=== PATIENT | female | born 1945 | race Hispanic/Latino ===

== ENCOUNTER 2022-06-25 06:50 | Day surgery (SDC) | payer OTHER ==
[2022-06-20 11:20] LABS: BASOPHILS % (AUTO) 0.6 % (0.0-5.0); EOSINOPHILS % (AUTO) 1.8 % (0.0-8.0); MEAN CORPUSCULAR HEMOGLOBIN 32.4 pg (27.0-33.0); MEAN CORPUSCULAR HGB CONC 32.2 g/dL (32.0-36.0); MEAN CORPUSCULAR VOLUME 100.8 fL (79-99); NEUTROPHILS % (AUTO) 49.2 % (40.0-77.0); PLATELET COUNT (AUTO) 120 K/uL (130-400); RED BLOOD CELL COUNT(AUTO) 3.67 MIL/uL (4.00-5.50); RED CELL DISTRIBUTION WIDTH 14.3 % (11.0-15.5); WHITE BLOOD COUNT (AUTO) 5.4 K/uL (4.8-10.8)
[2022-06-20 11:34] LABS: ALBUMIN 3.5 g/dL (3.5-5.0); CREATININE 4.3 mg/dL (0.5-1.5); POTASSIUM 4.6 mmol/L (3.5-5.1); TOTAL PROTEIN, SERUM 7.3 g/dL (6.0-8.3)
[2022-06-20 11:47] LABS: INR 0.98 (0.85-1.15); PROTHROMBIN TIME 10.7 SEC (9.6-11.6)
[2022-06-20 11:48] LABS: PARTIAL THROMBOPLASTIN TIME 31.3 SEC (26.3-35.5)
[2022-06-20 12:32] VITALS: BP 154/65
[2022-06-25] VITALS (19 sets, daily range): BP systolic 141–171; BP diastolic 52–79
[~2022-06-25] VITALS: Ht 152.4 cm; Wt 87.0 kg
[~2022-06-25 06:50] MED LIST: ACET-2247 PO; AEC81 PO; ALBU2.5V2 IH; AURYXIA PO; CLOP75TA32 PO; FOLI0.8T22 PO; HYDR100T27 PO; INSU3INS5 SQ; ISOS20TA9 PO; LEVO75TA10 PO; METO100T14 PO; PAPAVERINE HCL 30 MG/ML 2ML VIAL ONE; ROSU40TA21 PO; SEVE800T7 PO; THROMBIN-JMI 5000 UNIT/VIAL TP ONE
[2022-06-25] MEDS ORDERED: 0.9% NACL 500ML IV.SOLN 500 ML IV ONE (06:55)
[2022-06-25] MEDS ORDERED: CEFAZOLIN SODIUM 2 GM VIAL ONE (06:55)
[2022-06-25 07:31] LABS: CREATININE 4.6 mg/dL (0.5-1.5); POTASSIUM 4.3 mmol/L (3.5-5.1)
[2022-06-25] MEDS ORDERED: DEXAMETHASONE SOD PHOSPHATE 10MG/ML 1ML VIAL ONE (08:19)
[2022-06-25] MEDS ORDERED: LIDOCAINE PF 100MG/5ML (2%) SYRINGE 5ML ONE (08:19)
[2022-06-25] MEDS ORDERED: SUCCINYLCHOLINE CHLORIDE 20 MG/ML 10 ML VIAL ONE (08:19)
[2022-06-25] MEDS ORDERED: ONDANSETRON 4MG INJ ONE ×2 (08:19→09:53)
[2022-06-25] MEDS ORDERED: MIDAZOLAM HCL 1 MG/ML 2ML VIAL ONE (08:19)
[2022-06-25] MEDS ORDERED: PROPOFOL 10 MG/ML 20ML VIAL IV ONE (08:20)
[2022-06-25] MEDS ORDERED: NEOSTIGMINE 5MG/5ML SYR IV ONE (08:20)
[2022-06-25] MEDS ORDERED: ROCURONIUM 10MG/1ML SYR 10 MG/ML ML ONE (08:20)
[2022-06-25] MEDS ORDERED: FENTANYL CITRATE PF 50 MCG/1 ML 2ML VIAL ONE ×2 (08:20→09:54)
[2022-06-25] MEDS ORDERED: GLYCOPYRROLATE 1 MG/5 ML SYRINGE ONE (08:20)
[2022-06-25] MEDS ORDERED: HEPARIN 10,000 UNIT/10ML (1,000 UNIT/ML) VIAL ONE (09:11)
[2022-06-25] MEDS ORDERED: PROTAMINE SULFATE 10 MG/ML 5 ML VIAL ONE (09:11)
[2022-06-25] MEDS ORDERED: HYDRALAZINE 20MG/ML VIAL ONE (10:04)
[2022-06-25] MEDS ORDERED: IBUPROFEN 800 MG TAB ONE (10:45)
== END 2022-06-25 11:50 | disposition home or self-care (01) ==
LOC: DAH 06:50 → EDSTATUS 14:30
PROVIDERS: ATTEND Student in an Organized Health Care Education/Training Program
DX: E11.22 Type 2 diabetes mellitus with diabetic chronic kidney disease (principal); Z20.822 Contact with and (suspected) exposure to COVID-19; I12.0 Hypertensive chronic kidney disease with stage 5 chronic kidney disease or end stage renal disease; N18.6 End stage renal disease; E03.9 Hypothyroidism, unspecified; E11.51 Type 2 diabetes mellitus with diabetic peripheral angiopathy without gangrene; I25.10 Atherosclerotic heart disease of native coronary artery without angina pectoris; Z90.710 Acquired absence of both cervix and uterus; Z90.89 Acquired absence of other organs; Z98.890 Other specified postprocedural states; Z95.5 Presence of coronary angioplasty implant and graft; Z79.890 Hormone replacement therapy; Z79.4 Long term (current) use of insulin; Z79.82 Long term (current) use of aspirin; Z79.01 Long term (current) use of anticoagulants; Z79.899 Other long term (current) drug therapy; Z99.2 Dependence on renal dialysis
CPT/HCPCS: 80053; 85025; 85610; 85730; 87426; 36415 ×2; 71045; 93005; 36821; 80048; 82948 ×2; A6260; A4663; J7040; J3010 ×2; J3490; J1100; J2710; J0330; J2001; J2720; J0360; J1644 ×2; J2250; J2704; J2405 ×2; J0690; G0168; A4649 ×2; C1713 ×2; A4215; A4223; A4222; A4221; J2440

== ENCOUNTER → 2023-04-24 | Outpatient (CLI) | payer OTHER ==
[~2023-04-24] MED LIST changes: -PAPAVERINE HCL 30 MG/ML 2ML VIAL ONE; -THROMBIN-JMI 5000 UNIT/VIAL TP ONE
[2023-04-24 14:33] LABS: CREATININE 6.1 mg/dL (0.5-1.5)
== END | disposition home or self-care (01) ==
LOC: RAH 13:27
PROVIDERS: ATTEND Student in an Organized Health Care Education/Training Program
DX: N18.6 End stage renal disease (principal)
CPT/HCPCS: 36415; 82565; 84520

== ENCOUNTER → 2023-04-26 | Outpatient (CLI) | payer OTHER ==
[~2023-04-26] MED LIST changes: +IOHEXOL 350 MG/ML 100ML INFUS..BTL IV ONE; +IOHEXOL-350 50ML VIAL IV ONE
== END | disposition home or self-care (01) ==
LOC: RAH 07:46
PROVIDERS: ATTEND Student in an Organized Health Care Education/Training Program
DX: Z01.818 Encounter for other preprocedural examination (principal); N18.6 End stage renal disease; I70.0 Atherosclerosis of aorta; I70.203 Unspecified atherosclerosis of native arteries of extremities, bilateral legs
CPT/HCPCS: 75635; 93971; Q9967 ×2

== ENCOUNTER 2023-06-07 06:40 | Day surgery (SDC) | payer OTHER ==
[2023-06-03 10:11] LABS: BASOPHILS # (AUTO) 0.03 K/uL (0.00-0.20); BASOPHILS % (AUTO) 0.5 % (0.0-5.0); EOSINOPHILS # (AUTO) 0.09 K/uL (0.00-0.70); EOSINOPHILS % (AUTO) 1.4 % (0.0-8.0); HEMATOCRIT 34.8 % (36-48); IMMATURE GRANULOCYTE ABSOLUTE 0.02 K/uL (0-1); LYMPHOCYTES # (AUTO) 1.3 K/uL (1.0-4.8); LYMPHOCYTES % (AUTO) 20.4 % (21.0-51.0); MEAN CORPUSCULAR HEMOGLOBIN 33.2 pg (27.0-33.0); MEAN CORPUSCULAR HGB CONC 31.3 g/dL (32.0-36.0); MEAN CORPUSCULAR VOLUME 106.1 fL (79-99); MONOCYTES # (AUTO) 0.6 K/uL (0.1-1.0); MONOCYTES % (AUTO) 9.4 % (3.0-13.0); NEUTROPHILS # (AUTO) 4.5 K/uL (1.8-7.7); PLATELET COUNT (AUTO) 128 K/uL (130-400); RED BLOOD CELL COUNT(AUTO) 3.28 MIL/uL (4.00-5.50); RED CELL DISTRIBUTION WIDTH 13.6 % (11.0-15.5); WHITE BLOOD COUNT (AUTO) 6.6 K/uL (4.8-10.8)
[2023-06-03 10:16] LABS: POTASSIUM 4.7 mmol/L (3.5-5.1)
[2023-06-03 10:19] VITALS: BP 121/44; PULSE 63; RESP 18
[2023-06-03 10:28] LABS: INR 0.94 (0.85-1.15); PROTHROMBIN TIME 10.9 SEC (9.6-11.6)
[2023-06-03 10:30] LABS: PARTIAL THROMBOPLASTIN TIME 29.5 SEC (26.3-35.5)
[~2023-06-07] VITALS: Ht 154.9 cm; Wt 89.1 kg
[2023-06-07] VITALS (17 sets, daily range): BP systolic 129–162; BP diastolic 34–64; PULSE 67–79; RESP 14–16
[~2023-06-07 06:40] MED LIST changes: -ACET-2247 PO; -AURYXIA PO; +INSU100I35 SQ; -INSU3INS5 SQ; -IOHEXOL 350 MG/ML 100ML INFUS..BTL IV ONE; -IOHEXOL-350 50ML VIAL IV ONE; +LISI20TA24 PO; +MAGN200T4 PO; -METO100T14 PO; +SEVE800T27 PO; -SEVE800T7 PO
[2023-06-07] MEDS ORDERED: 0.9% NACL 500ML IV.SOLN 500 ML IV ONE ×2 (07:01→07:19)
[2023-06-07] MEDS ORDERED: CEFAZOLIN SODIUM 2 GM VIAL ONE (07:19)
[2023-06-07] MEDS ORDERED: LIDOCAINE HCL-MPF 2% 5ML VIAL ONE (07:54)
[2023-06-07] MEDS ORDERED: ROCURONIUM BROMIDE 10MG/1ML 5ML VL ONE (08:24)
[2023-06-07] MEDS ORDERED: FENTANYL CITRATE PF 50 MCG/1 ML 2ML VIAL ONE (08:24)
[2023-06-07] MEDS ORDERED: LIDOCAINE PF 100MG/5ML (2%) SYRINGE 5ML ONE (08:24)
[2023-06-07] MEDS ORDERED: GLYCOPYRROLATE 0.2 MG/ML 5 ML VIAL ONE (08:24)
[2023-06-07] MEDS ORDERED: PROPOFOL 10 MG/ML 20ML VIAL IV ONE (08:24)
[2023-06-07 08:29] LABS: CREATININE 5.3 mg/dL (0.5-1.5); POTASSIUM 3.3 mmol/L (3.5-5.1)
[2023-06-07] MEDS ORDERED: KETAMINE 50MG/ML SYRINGE 50 MG/ML DISP.SYRIN ONE (08:38)
[2023-06-07] MEDS ORDERED: EPHEDRINE SULFATE 50 MG/ML AMPULE ONE (09:11)
[2023-06-07] MEDS: CEFAZOLIN SODIUM 2 GM VIAL IVPB ONE (09:13)
[2023-06-07] MEDS: HEPARIN 5,000 UNIT VIAL IRRIG ONE (09:40)
[2023-06-07] MEDS ORDERED: ALBU18HF7 IH (10:29)
[2023-06-07] MEDS ORDERED: NEOSTIGMINE METHYLSULFATE 1MG/ML IV ONE (10:30)
== END 2023-06-07 12:50 | disposition home or self-care (01) ==
LOC: DAH 06:40
PROVIDERS: ATTEND Student in an Organized Health Care Education/Training Program
DX: E11.22 Type 2 diabetes mellitus with diabetic chronic kidney disease (principal); I12.0 Hypertensive chronic kidney disease with stage 5 chronic kidney disease or end stage renal disease; N18.6 End stage renal disease; I44.7 Left bundle-branch block, unspecified; I25.10 Atherosclerotic heart disease of native coronary artery without angina pectoris; E03.9 Hypothyroidism, unspecified; Z79.899 Other long term (current) drug therapy; Z98.890 Other specified postprocedural states; Z79.82 Long term (current) use of aspirin; Z79.890 Hormone replacement therapy; Z90.710 Acquired absence of both cervix and uterus; Z90.89 Acquired absence of other organs; Z95.5 Presence of coronary angioplasty implant and graft; Z86.73 Personal history of transient ischemic attack (TIA), and cerebral infarction without residual deficits; Z99.2 Dependence on renal dialysis
CPT/HCPCS: 80048 ×2; 85025; 85610; 85730; 86850 ×2; 86900 ×2; 86901 ×2; 36415 ×2; 93005; 36821; 37607; 82948 ×2; A6260; A4649 ×4; J7040 ×2; J3010; J3490 ×5; J2001; J2704; J2710; J1644 ×2; J0690 ×2; C1713 ×2; A4930; A4215; A4223; A4213; A4222; A4221; A4663; A4600; G0168

== ENCOUNTER 2023-12-23 06:43 | Observation (INO) | payer OTHER ==
[2023-12-19 10:54] LABS: BASOPHILS # (AUTO) 0.02 K/uL (0.00-0.20); BASOPHILS % (AUTO) 0.5 % (0.0-5.0); EOSINOPHILS % (AUTO) 2.6 % (0.0-8.0); HEMATOCRIT 33.2 % (36-48); IMMATURE GRANULOCYTE ABSOLUTE 0.01 K/uL (0-1); LYMPHOCYTES # (AUTO) 1.2 K/uL (1.0-4.8); MEAN CORPUSCULAR HEMOGLOBIN 34.4 pg (27.0-33.0); MEAN CORPUSCULAR HGB CONC 32.2 g/dL (32.0-36.0); MEAN CORPUSCULAR VOLUME 106.8 fL (79-99); MONOCYTES # (AUTO) 0.6 K/uL (0.1-1.0); MONOCYTES % (AUTO) 14.8 % (3.0-13.0); NEUTROPHILS # (AUTO) 1.9 K/uL (1.8-7.7); NEUTROPHILS % (AUTO) 49.8 % (40.0-77.0); PLATELET COUNT (AUTO) 130 K/uL (130-400); RED BLOOD CELL COUNT(AUTO) 3.11 MIL/uL (4.00-5.50); RED CELL DISTRIBUTION WIDTH 14.1 % (11.0-15.5); WHITE BLOOD COUNT (AUTO) 3.8 K/uL (4.8-10.8)
[2023-12-19 10:58] VITALS: BP 139/50; PULSE 65; RESP 18; TEMP 98
[2023-12-19 11:05] LABS: INR 1.05 (0.85-1.15); PROTHROMBIN TIME 11.3 SEC (9.6-11.6)
[2023-12-19 11:06] LABS: PARTIAL THROMBOPLASTIN TIME 29.2 SEC (26.3-35.5)
[2023-12-19 12:15] LABS: CREATININE 6.1 mg/dL (0.5-1.0)
[~2023-12-23] VITALS: Ht 152.4 cm; Wt 85.3 kg
[2023-12-23] VITALS (40 sets, daily range): BP systolic 100–149; BP diastolic 37–60; PULSE 47–62; RESP 12–20; TEMP 97.1–98.5; O2SAT 96–98
[~2023-12-23 06:43] MED LIST changes: -ALBU2.5V2 IH; +ALBUTEROL NEB; +HYDR100T15 PO; -HYDR100T27 PO; +INSU100C6 SQ; -INSU100I35 SQ; -LISI20TA24 PO; +LOSA50TA64 PO; +METO-409 PO; -ROSU40TA21 PO; +ROSU40TA88 PO
[2023-12-23] MEDS ORDERED: rocuRONium bROMide 10MG/1ML 5ML VL ONE (07:28)
[2023-12-23] MEDS ORDERED: proPOFol 10 MG/ML 20ML VIAL IV ONE (07:28)
[2023-12-23] MEDS ORDERED: ondanSETRON 4MG INJ ONE (07:28)
[2023-12-23] MEDS ORDERED: MIDAZOLAM HCL 1 MG/ML 2ML VIAL ONE (07:28)
[2023-12-23] MEDS ORDERED: phenylEPHRINE HCL 10 MG/ML 1ML VIAL IV ONE (07:28)
[2023-12-23] MEDS ORDERED: dexaMETHasone SOD PHOSPHATE 4 MG/ML 1ML VIAL ONE (07:29)
[2023-12-23] MEDS ORDERED: FENTanyl CITRate PF 50 MCG/1 ML 2ML VIAL ONE (07:29)
[2023-12-23] MEDS: DEXTROSE 50%-WATER 50 ML DISP.SYRIN IV ONE ×3 (07:44→14:45)
[2023-12-23] MEDS: 0.9% NACL 500ML IV.SOLN 500 ML IV ONE (07:44)
[2023-12-23] MEDS: ceFAZolin SODIUM 2 GM VIAL ONE (07:45)
[2023-12-23] MEDS ORDERED: BUPIvacaine/PF 0.25% 30ML VIAL IJ ONE (07:51)
[2023-12-23] MEDS ORDERED: HEParin-NS 1,000 UNIT/500 ML 500 ML IV ONE (07:51)
[2023-12-23] MEDS ORDERED: LIDOCAINE HCL 1% 20 ML VIAL ONE (07:53)
[2023-12-23 08:12] LABS: CREATININE 8.4 mg/dL (0.5-1.0)
[2023-12-23] MEDS: CALCIUM GLUC 1GM 1 GM in 0.9%NACL 100ML 100 ML IV ONE (08:41)
[2023-12-23] MEDS: INSULIN humuLIN R 100 UNIT/ML 3ML ONE (08:48)
[2023-12-23 09:56] LABS: POTASSIUM 5.9 mmol/L (3.5-5.1)
[2023-12-23 09:58] LABS: CREATININE 8.3 mg/dL (0.5-1.0)
[2023-12-23] MEDS: ceFAZolin SODIUM 2 GM VIAL IVPB ONE (12:30)
[2023-12-23] MEDS ORDERED: NEOSTIGMINE METHYLSULFATE 1MG/ML IV ONE (13:08)
[2023-12-23] MEDS ORDERED: GLYCOPYRROLATE 0.2 MG/ML 5 ML VIAL ONE (13:08)
[2023-12-23 14:15] LABS: CREATININE 8.6 mg/dL (0.5-1.0); POTASSIUM 6.2 mmol/L (3.5-5.1)
[2023-12-23] MEDS ORDERED: APPL NEB PRN (15:30)
[2023-12-23] MEDS: 0.9%NACL 1000ML 1,000 ML IV SCH (15:30)
[2023-12-23] MEDS: sevELAMer HCL 800 MG TABLET PO SCH (16:55)
[2023-12-23] MEDS: INSULIN LISpro 100 UNIT/ML 3ML SQ SCH (20:00)
[2023-12-23] MEDS: LoSARTan 50 MG TABLET PO SCH (20:20)
[2023-12-23] MEDS: hydrALAZine 25MG TABLET PO SCH (20:20)
[2023-12-23] MEDS ORDERED: INSULIN ASPART 30 UNIT SQ SCH (21:00)
[2023-12-23] MEDS: atorVAStatin 40 MG TABLET PO SCH (21:00)
[2023-12-23] MEDS ORDERED: NON-FORMULARY MEDICATION 1 EACH (Hydralazine HCl 100 MG) PO SCH (21:00)
[2023-12-23] MEDS ORDERED: NON-FORMULARY MEDICATION 1 EACH (Rosuvastatin Calcium 40 MG) PO SCH (21:00)
[2023-12-24] VITALS (7 sets, daily range): BP systolic 102–143; BP diastolic 41–52; PULSE 57–105; RESP 18–19; TEMP 98.4–98.8; O2SAT 99
[2023-12-24] MEDS: ACETAMINOPHEN 650 MG PO PRN (03:32)
[2023-12-24 04:12] LABS: HEPATITIS B CORE AB TOTAL Non-Reactive (Nonreactive); HEPATITIS B SURFACE ANTIBODY Positive (Reactive); HEPATITIS B SURFACE ANTIGEN Non-Reactive (Nonreactive)
[2023-12-24 05:29] LABS: CREATININE 5.9 mg/dL (0.5-1.0); POTASSIUM 5.6 mmol/L (3.5-5.1)
[2023-12-24] MEDS: levoTHYROxine 75 MCG TABLET PO SCH (05:36)
[2023-12-24] MEDS ORDERED: NA ZIRCON CYCLOSIL(LOKELMA 10GM) PO ONE (07:30)
[2023-12-24] MEDS ORDERED: INSULIN ASPART 40 UNIT SQ SCH (09:00)
[2023-12-24] MEDS ORDERED: NON-FORMULARY MEDICATION 1 EACH (Metoprolol Succinate 100 MG) PO SCH (09:00)
[2023-12-24] MEDS ORDERED: cloPIDOgrel 75MG TAB PO SCH (09:00)
[2023-12-24] MEDS: ASPIRIN 81 MG EC TAB PO SCH (09:14)
[2023-12-24] MEDS: metOPROLol sucCINATE 50 MG TAB.SR.24H PO SCH (09:14)
[2023-12-24] MEDS: NA ZIRCON CYCLOSIL(LOKELMA 10GM) PO ONE (09:15)
[2023-12-24] MEDS: INSULIN LISpro 100 UNIT/ML 3ML SQ SCH (09:21)
[2023-12-24] MEDS: VITAMIN B COMP W C PO SCH (12:18)
[2023-12-24] MEDS: Magnesium 200 MG PO SCH (12:18)
[2023-12-24] MEDS: FOLIC ACID PO SCH (12:18)
[2023-12-30] MEDS ORDERED: levoTHYROxine 75 MCG TABLET PO SCH (06:30)
== END 2023-12-24 18:00 | disposition home or self-care (01) ==
LOC: DAH 06:43 → DAHIP 06:44 → DAH 06:44 → 3DH 15:00
PROVIDERS: ADMIT Student in an Organized Health Care Education/Training Program; ATTEND Student in an Organized Health Care Education/Training Program
DX: I12.0 Hypertensive chronic kidney disease with stage 5 chronic kidney disease or end stage renal disease (principal); E11.22 Type 2 diabetes mellitus with diabetic chronic kidney disease; N18.6 End stage renal disease; E87.5 Hyperkalemia; D63.1 Anemia in chronic kidney disease; I25.10 Atherosclerotic heart disease of native coronary artery without angina pectoris; E03.9 Hypothyroidism, unspecified; Z99.2 Dependence on renal dialysis; Z79.899 Other long term (current) drug therapy; Z90.710 Acquired absence of both cervix and uterus
CPT/HCPCS: 80048 ×5; 85025; 85610; 85730; 86850 ×2; 86900 ×2; 86901 ×2; 36415 ×3; 71045; 93005; 96376; 96365; 96375; 82948 ×12; 36832; 86803; 86706; 87340; 86704; 90935; A6260; J1815 ×3; J1100; G0378 ×24; A4223 ×2; A4600; A4663; A6207; J7040; J3010; J0665 ×2; J7070 ×3; J3490 ×2; J0612; J2250; J2704; J2405; J2710; J1644 ×2; J2371; J0690 ×2; G0168; A4649 ×2; C1713 ×2; A4930; A4215; A4222; A4221; A4216; G0257

== ENCOUNTER 2025-03-01 09:58 | Emergency (ER) | payer OTHER ==
[~2025-03-01] VITALS: Ht 152.4 cm; Wt 85.4 kg
--- NOTE | 2025-03-01 10:07 | ERN ---
ED Note History of Present Illness Stated Complaint: RLE PAIN/SWELLING Chief Complaint: LOWER EXTREMITY EDEMA Time Seen by MD: 10:01 Dictation: PATIENT IS A 79-YEAR-OLD DIALYSIS PATIENT HERE WITH ERYTHEMA SWELLING TENDERNESS TO HER RIGHT LOWER LEG FROM HER KNEE DOWN FOR THREE DAYS. NO FEVER NO CHILLS NO NAUSEA VOMITING. WENT TO HEMODIALYSIS DAY AND WAS STRONGLY ADVISED TO COME TO THE EMERGENCY ROOM TO RULE OUT DVT. DISTAL NEUROVASCULAR CMS INTACT. PULSES PALPABLE Allergies: Coded Allergies: No Known Drug Allergies (Unverified Allergy, Unknown, 06/20/22) Home Meds Reported Medications Insulin Aspart (Novolog) 100 Unit/Ml Cartridge, 30 UNIT SQ HS, CARTRIDGE 12/19/23 Insulin Aspart (Novolog) 100 Unit/Ml Cartridge, 40 UNIT SQ AM, CARTRIDGE 12/19/23 [Albuterol] No Conflict Check, 1 APPL NEB AD PRN for SHORTNESS OF BREATH 12/19/23 Losartan Potassium (Losartan Potassium) 50 Mg Tablet, 50 MG PO HS, TAB 12/19/23 Metoprolol Succinate (Metoprolol Succinate) 100 Mg Tab.er.24h, 100 MG PO AM, TAB 12/19/23 Sevelamer HCl (Sevelamer HCl) 800 Mg Tablet, 1600 MG PO TIDMEALS, TAB 06/03/23 Folic Acid/Vitamin B Comp W-C (Isabel-Antonio Tablet) 0.8 Mg Tablet, 0.8 MG PO PCLUNCH, TAB 06/03/23 Magnesium (Magnesium) 200 Mg Tablet, 200 MG PO PCLUNCH, TAB 06/03/23 Clopidogrel Bisulfate (Clopidogrel) 75 Mg Tablet, 75 MG PO DAILY, TAB 06/21/22 Aspirin (ASPIRIN 81 MG ECTAB) 81 Mg Ectab, 81 MG PO DAILY, TAB.EC 06/21/22 Rosuvastatin Calcium (Rosuvastatin Calcium) 40 Mg Tablet, 40 MG PO HS, TAB 06/21/22 Levothyroxine Sodium (Levothyroxine Sodium) 75 Mcg Tablet, 37.5 MCG PO QWEEK, TAB on sundays06/21/22 Levothyroxine Sodium (Levothyroxine Sodium) 75 Mcg Tablet, 75 MCG PO DAILY, TAB SATURDAY-Saturday06/21/22 Isosorbide Dinitrate (Isosorbide Dinitrate) 20 Mg Tablet, 20 MG PO BID, TAB 06/21/22 Hydralazine HCl (Hydralazine HCl) 100 Mg Tablet, 100 MG PO TID, TAB 06/21/22 Past Medical History Past Medical History: Diabetes-Type II, High Cholesterol, Heart Disease, Hypertension, Hyperthyroid, Renal Disese Surgical History: Appendectomy, Hysterectomy, Tonsillectomy, LAVA, RAVA History: Not Applicable RN Note Reviewed/Agreed w/PFSH: Yes Review of System Dictation CONSTITUTIONAL: NEGATIVE EXCEPT FOR HPI HEAD/FACE: NEGATIVE EXCEPT FOR HPI EENT: NEGATIVE EXCEPT FOR HPI RESPIRATORY: NEGATIVE EXCEPT FOR HPI GASTROINTESTINAL/ABDOMINAL: NEGATIVE EXCEPT FOR HPI GENITOURINARY: NEGATIVE EXCEPT FOR HPI MUSCULOSKELETAL: NEGATIVE EXCEPT FOR HPI RIGHT LOWER LEG ERYTHEMA SWELLING TEND ERNESS THREE DAYS INTEGUMENTARY: NEGATIVE EXCEPT FOR HPI NEUROLOGICAL/PSYCH: NEGATIVE EXCEPT FOR HPI HEMATOLOGIC/LYMPHATIC: NEGATIVE EXCEPT FOR HPI ALL SYSTEMS NEGATIVE, EXCEPT NOTED ABOVE. 13 POINT REVIEW OF SYSTEMS ASSESSED AND ALL NEGATIVE EXCEPT FOR ABOVE. Initial Vital Sign VS Vital Signs Date Time Temp Pulse Resp B/P (MAP) Pulse Ox O2 Delivery O2 Flow Rate FiO2 03/01/25 09:59 98.2 64 16 158/50 99 Room Air 0 Physical Exam Dictation VITAL SIGNS REVIEWED GENERAL APPEARANCE: ALERT, ORIENTED X 3, N MILD ACUTE DISTRESS, WELL DEVELOPED, NOURISHED. HEAD AND FACE: NON-TRAUMATIC. EYES: PERRL, PINK CONJUNCTIVAS, EYELID NO TRAUMA, ANTERIOR CHAMBER WITH ARCUS SENILIS. EARS: PINNAS INTACT AND NO SIGNS OF TRAUMA OR ERYTHEMA EAR CANALS CLEAR AND NO DISCHARGE TM NO ERYTHEMA NOSE: NO DISCHARGE, NO BLEEDING. OROPHARYNX: MOUTH NORMAL, TONGUE PINK, PHARYNX CLEAR,NO ERYTHEMA, TONSILS NO EXUDATES, NO ABSCESSES NOTED, MUCOUS MEMBRANE MOIST NECK: SUPPLE, NON-TENDER, NO THYROMEGALY, NO MASSES, NO JVD, NO BRUITS BREAST:DEFERRED CHEST:NO TENDERNESS, NO CREPITUS, NO PARADOXICAL MOVEMENT, NO RETRACTIONS LUNGS:CLEAR, WELL-VENTILATED, SYMMETRIC, NO RALES, NO WHEEZING, NO RHONCHI, NO STRIDOR, GOOD BREATH SOUNDS BILATERALLY HEART: REGULAR RATE, REGULAR RHYTHM, NO MURMUR, NO GALLOPS VASCULAR: NO PERIPHERAL EDEMA, ABDOMEN: SOFT, POSITIVE BOWEL SOUNDS, NONDISTENDED, NO GUARDING, NONTENDER, NO REBOUND, NO MASSES NO HEPATOMEGALY, NO SPLENOMEGALY, NO LARSON'S SIGN, NO HERNIAS. RECTAL: DEFERRED GENITAL: DEFERRED NEUROLOGICAL: NORMAL SPEECH, MOTOR FUNCTION INTACT, SENSORY FUNCTION INTACT MUSCULOSKELETAL: NECK NONTENDER, FULL RANGE OF MOTION, BACK NONTENDER, FULL RANGE OF MOTION, EXTREMITIES: RIGHT LOWER EXTREMITY FROM KNEE DOWN TO FOOT WITH ERYTHEMA SWELLING AND TENDERNESS. POSITIVE CALF TENDERNESS. DISTAL NEUROVASCULAR CMS INTACT. SKIN: COLOR PINK, DRY, NO TURGOR, NO RASH, NO LACERATIONS, NO ABRASIONS, NO CONTUSIONS. LYMPHATIC: DEFERRED Results (Laboratory/Radiology) Laboratory/Radiology Laboratory Tests Test 03/01/25 10:16 White Blood Count 6.2 K/uL (4.8-10.8) Red Blood Count 2.88 MIL/uL (4.00-5.50) L Hemoglobin 10.0 g/dL (12.0-16.0) L Hematocrit 30.5 % (36-48) L Mean Corpuscular Volume 105.9 fL (79-99) H Mean Corpuscular Hemoglobin 34.7 pg (27.0-33.0) H Mean Corpuscular Hemoglobin Concent 32.8 g/dL (32.0-36.0) Red Cell Distribution Width 13.6 % (11.0-15.5) Platelet Count 125 K/uL (130-400) L Mean Platelet Volume 10.1 fL (7.5-10.5) Immature Granulocyte % (Auto) 0.5 % (0-1) Neutrophils (%) (Auto) 67.4 % (40.0-77.0) Lymphocytes (%) (Auto) 20.8 % (21.0-51.0) L Monocytes (%) (Auto) 10.1 % (3.0-13.0) Eosinophils (%) (Auto) 1.0 % (0.0-8.0) Basophils (%) (Auto) 0.2 % (0.0-5.0) Neutrophils # (Auto) 4.2 K/uL (1.8-7.7) Lymphocytes # (Auto) 1.3 K/uL (1.0-4.8) Monocytes # (Auto) 0.6 K/uL (0.1-1.0) Eosinophils # (Auto) 0.06 K/uL (0.00-0.70) Basophils # (Auto) 0.01 K/uL (0.00-0.20) Absolute Immature Granulocyte (auto 0.03 K/uL (0-1) Nucleated Red Blood Cells 0.0 % (0.0-0.19) Red Blood Cell Morphology See comments Sodium Level 136 mmol/L (136-145) Potassium Level 3.4 mmol/L (3.5-5.1) L Chloride Level 96 mmol/L (101-111) L Carbon Dioxide Level 32 mmol/L (21-32) Blood Urea Nitrogen 19 mg/dL (7-18) H Creatinine 4.2 mg/dL (0.5-1.0) H Glomerular Filtration Rate Calc 10 mL/min (>90) Random Glucose 194 mg/dL (70-105) H Lactic Acid Level 1.8 mmol/L (0.8-2.5) Total Calcium 8.7 mg/dL (8.5-10.1) 1050/RIGHT LEG ULTRASOUND DOPPLER NEGATIVE FOR DVT Labs Reviewed?: Yes ED Course ED Course Orders Procedure Category Date Status Time Us Venous Doppler US 03/01/25 Resulted Unilateral 10:05 Blood Cult LUZ 03/01/25 In Process 10:05 Lactic Acid LAB 03/01/25 Complete 10:05 Cbc With Differential LAB 03/01/25 Complete 10:05 Basic Metabolic Panel LAB 03/01/25 Complete 10:05 Cephalexin 500 Mg PHA 03/01/25 Complete Capsule (Keflex 500 Mg 11:00 Current Medications Medications (Trade) Dose Ordered Sig/Ana Route PRN Reason Start Time Stop Time Status Last Admin Dose Admin Cephalexin (Keflex 500 MG CAPS) 500 mg ONCE ONCE PO 03/01/25 11:00 03/01/25 11:03 DC Vital Signs Date Time Temp Pulse Resp B/P (MAP) Pulse Ox O2 Delivery O2 Flow Rate FiO2 03/01/25 09:59 98.2 64 16 158/50 99 Room Air 0 1120/PATIENT DISCHARGED HOME WITH DIAGNOSIS OF ERYSIPELAS. GIVEN KEFLEX 500 Q.DAY Medical Decision Making MDM MDM: DIFFERENTIAL DIAGNOSIS: ERYSIPELAS THAT IS CELLULITIS/ELECTROLYTE IMBALANCE/DEHYDRATION/DVT RATIONALE: TESTS CONSIDERED AND ORDERED SECONDARY TO SHARED DECISION MAKING INCLUDE: LABS/RADIOLOGY PREVIOUS OUTSIDE RECORDS REVIEWED: OLD ER VISITS. RISK OF COMPLICATION AND/OR MORBIDITY OR MORTALITY OF PATIENT MANAGEMENT: NONE MEDICATIONS-PER MEDICATION RECONCILIATION NEED FOR HOSPITALIZATION: PATIENT DOES NOT MEET CRITERIA FOR HOSPITALIZATION. NONE NEED FOR EMERGENCY MAJOR/MINOR SURGERY: NO THERE ARE NO SOCIAL CONCERNS WITH THIS PATIENT. PRESCRIPTION DRUG MANAGEMENT KEFLEX 500 MG Q.DAY PRESCRIPTIONS WILL INCLUDE SYMPTOMATIC CARE PATIENT'S PRIOR EXTERNAL MEDICAL RECORDS FROM OTHER ER VISITS WERE REVIEWED BY ME INDICATED. PRIOR TESTING AND RESULTS FROM PREVIOUS VISITS WERE REVIEWED. PRIOR TESTS WERE TAKEN INTO ACCOUNT WITH MEDICAL DECISION MAKING AND RESOURCE UTILIZATION, INDEPENDENT HISTORIAN/HISTORIANS WERE USED TO OBTAIN COMPLETE MEDICAL HISTORY. I INDEPENDENTLY INTERPRETED THE TEST THAT WERE PERFORMED, RESULTS WERE REVIEWED BY ME AND CONSIDERED FINDINGS ON RADIOLOGY IF ORDERED. MEDICAL MANAGEMENT AND EXAMINATION INTERPRETATION DISCUSSIONS WERE HAD BY ME WITH OTHER QUALIFIED HEALTHCARE PROFESSIONALS INDICATED FOR THE PATIENT'S CARE. DX & DISP Disposition: Discharge Departure Impression: Primary Impression: Erysipelas of right lower extremity Additional Impressions: Uncontrolled diabetes mellitus, End-stage renal disease on hemodialysis Condition: Stable Scripts Cephalexin (Cephalexin) 500 Mg Tablet 500 MG PO DAILY for 7 Days, #7 TAB Prov: JEAN HOWARD 03/01/25 Additional Instructions: FOLLOW-UP WITH PRIMARY CARE PROVIDER IN 1 TO 2 DAYS. TAKE MEDICATIONS DIRECTED HERE IN THE EMERGENCY ROOM. OKAY TO CONTINUE HOME MEDICATIONS UNLESS OTHERWISE DISCUSSED DURING YOUR VISIT IN THE EMERGENCY ROOM TODAY. RETURN TO YOUR NEAREST EMERGENCY ROOM IF SYMPTOMS WORSEN OR IF THERE IS NO IMPROVEMENT. CALL 911 IF YOU NEED IMMEDIATE ASSISTANCE. TAKE TYLENOL OR MOTRIN [id number] NEEDED AND IF NO CONTRAINDICATIONS ARE PRESENT. INCREASE ORAL HYDRATION. A WOUND CULTURE OR URINE CULTURE WAS ORDERED HERE IN THE EMERGENCY ROOM DEPARTMENT PLEASE FOLLOW-UP WITH PRIMARY CARE PROVIDER AND ADVISE THEM TO GET REPEAT PORTS FROM OUR FACILITY. IF YOU HAD ANY ARLYN WRAP/SPLINTS THAT WERE APPLIED HERE, PLEASE DO NOT REMOVE THEM UNTIL YOU SEE YOUR PRIMARY CARE OR SPECIALTY. TAKE ANTIBIOTICS DIRECTED UNTIL GONE, START 1ST DOSE TOMORROW. ELEVATE RIGHT LEG MUCH POSSIBLE AND SEE YOUR PRIMARY CARE DOCTOR FOR FOLLOW UP. Referrals: ANGELIC MCMANUS MD (PCP) JEAN HOWARD Mar 01, 2025 10:07
[2025-03-01 10:33] LABS: IMMATURE GRANULOCYTE ABSOLUTE 0.03 K/uL (0-1); NUCLEATED RED BLOOD CELLS 0.0 % (0.0-0.19); PLATELET COUNT (AUTO) 125 K/uL (130-400); RED BLOOD CELL COUNT(AUTO) 2.88 MIL/uL (4.00-5.50); RED CELL DISTRIBUTION WIDTH 13.6 % (11.0-15.5); WHITE BLOOD COUNT (AUTO) 6.2 K/uL (4.8-10.8)
[2025-03-01 10:41] LABS: CREATININE 4.2 mg/dL (0.5-1.0); GLOMERULAR FILTR. RATE CALC 10.0 mL/min (>90); GLUCOSE,RANDOM 194.0 mg/dL (70-105); SODIUM SERUM 136.0 mmol/L (136-145); UREA NITROGEN, BLOOD 19.0 mg/dL (7-18)
--- NOTE | 2025-03-01 11:03 | HMCIMG ---
RIGHT LOWER EXTREMITY VENOUS ULTRASOUND CLINICAL INDICATION: Right leg pain TECHNIQUE: Duplex scan of the right lower extremity venous system performed using B-Mode/Grayscale imaging and Doppler spectral analysis and color flow. COMPARISON: None available FINDINGS: Normal flow, phasicity, augmentation, and compression was observed in the common femoral, superficial femoral, popliteal, and posterior tibial veins. IMPRESSION: No sonographic evidence of deep venous thrombosis involving the right lower extremity. /[place]
[2025-03-01] MEDS ORDERED: CEPH500T PO (11:21)
[2025-03-01 11:22] VITALS: BP 168/67; PULSE 65; RESP 18; TEMP 98.7; O2SAT 99
== END 2025-03-01 11:52 | disposition home or self-care (01) ==
LOC: EDH 09:58
DX: A46 Erysipelas (principal); I13.11 Hypertensive heart and chronic kidney disease without heart failure, with stage 5 chronic kidney disease, or end stage renal disease; E11.22 Type 2 diabetes mellitus with diabetic chronic kidney disease; N18.6 End stage renal disease; E11.65 Type 2 diabetes mellitus with hyperglycemia; E78.00 Pure hypercholesterolemia, unspecified; Z79.02 Long term (current) use of antithrombotics/antiplatelets; Z79.82 Long term (current) use of aspirin; Z79.890 Hormone replacement therapy; Z79.899 Other long term (current) drug therapy; Z90.49 Acquired absence of other specified parts of digestive tract; Z90.710 Acquired absence of both cervix and uterus; Z99.2 Dependence on renal dialysis
CPT/HCPCS: 36415; 80048; 83605; 85025; 87040; 93971; 99284